=== PATIENT | male | born 1985 | race Two or more races ===

== ENCOUNTER 2025-05-25 10:36 | Emergency (ER) | payer OTHER ==
[~2025-05-25] VITALS: Ht 170.2 cm; Wt 90.7 kg
[2025-05-25 10:40] VITALS: BP 127/74; TEMP 98.3; O2SAT 97
[2025-05-25] MEDS ORDERED: CETI1TAB9 PO (10:48)
[2025-05-25] MEDS ORDERED: AMOX-427 PO (10:48)
== END 2025-05-25 10:57 | disposition home or self-care (01) ==
LOC: ER 10:41
DX: H66.92 Otitis media, unspecified, left ear (principal)